=== PATIENT | male | born 1975 | race Caucasian/White ===

== ENCOUNTER 2021-06-10 22:00 | Emergency (ER) | payer SELFPAY ==
[2021-06-10 22:03] VITALS: BP 125/85; PULSE 72; RESP 16; TEMP 36.7; O2SAT 96
--- NOTE | 2021-06-10 22:15 | DI.RAD_ITS ---
Exam(s) XR RIBS LT W PA LAT CHEST EXAM: XR RIBS LT W PA LAT CHEST CLINICAL HISTORY: left lower chest wall pain, fell waterskiing. TECHNIQUE: 2D digital imaging was performed. COMPARISON: No exams were available for comparison FINDINGS: No evidence of obvious left rib fracture nor subjacent pneumothorax. Fusion hardware across 3 levels in the lower thoracic spinal column noted. Hardware appears intact on these views. Heart size normal mediastinum is not widened. Lungs are clear. No pleural effusions. No lung contu emmie. No pneumothorax IMPRESSION: No left rib fracture seen. No acute pulmonary findings. DATA REPOSITORY: RADIATION DOSE DELIVERED:
--- NOTE | 2021-06-10 22:25 | ED.GENADUL_ITS ---
Discharge Plan Disposition Patient Disposition: HOME Condition: Good Discharge Details Clinical Impression: Fracture of rib Primary Care Provider: Unknown,Unknown ED Provider: Robyn Jara Home Meds and New Rx's Prescriptions: New lidocaine [Lidoderm] 5 % adhesive patch,medicated 1 patch topical DAILY Qty: 15 RF: 0 hydrocodone-acetaminophen 5-325 mg tablet 1 tab PO BID PRNQty: 5 RF: 0 Discharge Instructions Instructions: Rib Fracture (ED) Additional Instructions: You have a rib fracture, it is recommended you take at least 6-8 deep breaths in and held completely you do not develop pneumonia Ibuprofen 600 mg every 8 hours with food Use Lidoderm patch, 12 hours on, 12 hours off Please return earlier should you have worsening shortness of breath, fever, chills, or with any new or worsening Medical Decision Making Patient does not have any tenderness or visible evidence of trauma in his abdomen, specifically no tenderness over his spleen or kidney He does have reproducible tenderness at the left lower rib cage use, chest x-ray pending We will place Lidoderm patch and give to oxycodone for comfort Lungs are clear to auscultation, low suspicion for pneumothorax Virtual radiology interpretation does not reveal rib fracture, however I believe I see a rib fracture at the 9 rib that is mildly displaced, there is no evidence of pneumothorax I discussed spirometry with patient and he will ensure that he is performing at least 6-8 deep inspirations HPI General Mode of arrival: ambulatory . Date/Time Provider Initiated Documentation: 06/10/21 22:07 . Limitations to Documentation: no limitations . Information obtained by: patient . HPI Narrative: This 46-year-old gentleman who is otherwise healthy presents with report of left lower chest wall pain. He states that he fell waterskiing just prior to arrival and landed on his left chest. He did not lose consciousness and actually was able to finish skiing after the event occurred. He had some pain initially but it is worsened over the course of the past 3 hours. He states the event occurred approximately 7:00 this evening. He denies any head injury, vomiting, history of coagulopathy. Patient states the pain is exacerbated with breathing and movement. He states he is unable to lie flat secondary to discomfort. He does state he had a similar pain after a twisting and lifting injury approximately 3 months ago. He states and the pain was in a similar area. He states that this resolved at the beginning of May and he was pain-free until he fell waterskiing today. Related Data Home Medications Medication Instructions Recorded Confirmed hydrocodone-acetaminophen 1 tab PO BID PRN #5 tab 06/10/21 lidocaine [Lidoderm] 1 patch TOPICAL DAILY #15 ea 06/10/21 Previous Rx's Medication Instructions Recorded hydrocodone-acetaminophen 1 tab PO BID PRN #5 tab 06/10/21 lidocaine [Lidoderm] 1 patch TOPICAL DAILY #15 ea 06/10/21 Allergies Allergy/AdvReac Type Severity Reaction Status Date / Time erythromycin base Allergy Severe Psychosis Unverified 06/10/21 22:09 lactase [From Dairy Aid] Allergy Severe Nausea Unverified 06/10/21 22:09 tetracycline Allergy Severe Psychosis Unverified 06/10/21 22:09 General Stated Complaint: Chest/Rib MIR: 3 Review of Systems All systems reviewed & are unremarkable except as noted in HPI and below PFSH Social History Smoking/Tobacco Use Status: Never Smoking risk assessment performed?: Yes Alcohol Intake: current Alcohol Intake frequency: a few times a week Alcohol type: beer Substance use type: marijuana Do you feel safe at home: Yes Do you feel safe in your relationship?: Yes Exam Const Orientation: alert and oriented x3 HENMT Head: normal to inspection Eyes Pupils: PERRL Neck Other: No midline tenderness Chest Chest/axillae images: 1. Tenderness with palpation, no crepitus, swelling noted Resp Effort & Inspection: normal respiratory effort Auscultation: clear to auscultation bilaterally Cardio Rate: regular rate Rhythm: regular rhythm GI Other: No tenderness on left upper quadrant, no lesions CVA tenderness, no right upper quadrant tenderness Skin General skin exam: no rashes or lesions noted Neuro General: patient alert and patient oriented x3 Course Vital Signs Vital signs: Vital Signs Temperature 36.7 C 06/10/21 22:03 Pulse 72 06/10/21 22:03 Respiratory Rate 16 06/10/21 22:03 Blood Pressure 125/85 06/10/21 22:03 Pulse Oximetry 96 06/10/21 22:03 Temperature 36.7 C 06/10/21 22:03 Temperature Source Tympanic 06/10/21 22:03 Pulse 72 06/10/21 22:03 Respiratory Rate 16 06/10/21 22:03 Respiratory Effort 06/10/21 22:14 Blood Pressure 125/85 06/10/21 22:03 Blood Pressure Position Sitting 06/10/21 22:03 Pulse Oximetry 96 06/10/21 22:03 Oxygen Delivery Method Room Air 06/10/21 22:03 Oxygen Flow Rate 0 06/10/21 22:03 Pain Level 3 06/10/21 22:03 Comment 06/10/21 22:03
[2021-06-10] MEDS: oxyCODONE 10 MG TAB PO (22:28)
--- NOTE | 2021-06-10 23:23 | DI.VRAD_ITS ---
PROCEDURE INFORMATION: Exam: XR Left Ribs Exam date and time: 06/10/2021 10:25 PM Age: 46 years old Clinical indication: Other: Fall water skiing left lower chest wall pain TECHNIQUE: Imaging protocol: XR Left ribs. Views: 2 views. COMPARISON: No relevant prior studies available. FINDINGS: Bones/joints: No evidence of acute fracture. Pleural space: There is no evidence of pneumothorax. Soft tissues: Normal. IMPRESSION: 1. No evidence of acute fracture. 2. There is no evidence of pneumothorax. PROCEDURE INFORMATION: Exam: XR Chest Exam date and time: 06/10/2021 10:25 PM Age: 46 years old Clinical indication: Other: Fall water skiing left lower chest wall pain TECHNIQUE: Imaging protocol: XR of the chest. Views: 2 views. COMPARISON: No relevant prior studies available. FINDINGS: Lungs: No focal pneumonia or pneumothorax. Pleural spaces: There are no pleural effusions present. Heart/Mediastinum: Unremarkable. No cardiomegaly. Bones/joints: Postoperative changes of the lumbar spine. IMPRESSION: No focal pneumonia or pneumothorax. Dictated and Authenticated by: Babak Sarah MD. Ordering:CECILIA Carlson MD
[2021-06-10] MEDS: Lidocaine 5% Patch 1 PATCH TP (23:29)
[2021-06-10 23:52] VITALS: BP 125/85; PULSE 72; RESP 16; TEMP 36.7; O2SAT 96
== END 2021-06-10 23:50 | disposition home or self-care (01) ==
PROVIDERS: Emergency Provider Physician Assistant
DX: S22.32XA Fracture of one rib, left side, initial encounter for closed fracture (principal); W16.312A Fall into other water striking water surface causing other injury, initial encounter; Y93.17 Activity, water skiing and wake boarding
CPT/HCPCS: 99283; 71046; 71100